=== PATIENT | male | born 1955 | race Two or more races ===

== ENCOUNTER → 2018-11-28 | Outpatient (CLI) | payer MEDICARE ==
[~2018-11-28] MED LIST: OMNIPAQUE 350 MG/ML, 150 ML BOTTLE ONE
== END | disposition home or self-care (01) ==
LOC: CFH 12:44
PROVIDERS: ATTEND Internal Medicine Cardiovascular Disease
DX: I63.511 Cerebral infarction due to unspecified occlusion or stenosis of right middle cerebral artery (principal); I74.3 Embolism and thrombosis of arteries of the lower extremities; M79.604 Pain in right leg; I70.8 Atherosclerosis of other arteries
CPT/HCPCS: 71275; 75635; 82565; Q9967

== ENCOUNTER → 2018-11-29 | Outpatient (CLI) | payer MEDICARE | END | disposition home or self-care (01) | LOC: CFH 07:10 | PROVIDERS: ATTEND Internal Medicine Cardiovascular Disease | DX: I65.23 Occlusion and stenosis of bilateral carotid arteries (principal) | CPT/HCPCS: 78452; 93017; 93880; A9502 ==

== ENCOUNTER 2019-06-29 07:35 | Emergency (ER) | payer MEDICARE ==
[~2019-06-29] VITALS: Ht 165.1 cm; Wt 75.3 kg
[2019-06-29 07:38] VITALS: BP 139/90
--- NOTE | 2019-06-29 07:47 | NUR ---
Pt ambulated to room from triage. NADN. No needs expressed at this time.
--- NOTE | 2019-06-29 08:03 | NUR ---
Pt resting on gurney connected to NIBP cuff and continous pulse ox monitor. Call light within reach. Family at bedside. NADN. No needs expressed.
[2019-06-29] MEDS ORDERED: Plavix (08:10)
[2019-06-29 08:49] LABS: RAPID INFLUENZA A Negative (Negative); RAPID INFLUENZA B Negative (Negative)
[2019-06-29 08:55] LABS: BASOPHILS # (AUTO) 0.04 x10^3/uL (0-0.1); BASOPHILS % (AUTO) 1 % (0-1); EOSINOPHILS # (AUTO) 0.25 x10^3/uL (0-0.4); EOSINOPHILS % (AUTO) 4 % (1-7); LYMPHOCYTES # (AUTO) 0.74 x10^3/uL (1-3.4); LYMPHOCYTES % (AUTO) 11 % (22-44); MD NO; MEAN CORPUSCULAR HEMOGLOBIN 31.1 pg (27.5-34.5); MEAN CORPUSCULAR HGB CONC 32.7 g/dL (33.2-36.2); MEAN CORPUSCULAR VOLUME 95.2 fL (81-97); MEAN PLATELET VOLUME 7.7 fL (7.4-10.4); MONOCYTES # (AUTO) 0.34 x10^3/uL (0.2-0.8); MONOCYTES % (AUTO) 5 % (2-9); NEUTROPHILS # (AUTO) 5.63 x10^3/uL (1.8-6.8); NEUTROPHILS % (AUTO) 80 % (42-75); PLATELET COUNT 284 x10^3/uL (130-400); RED BLOOD COUNT 5.03 x10^6/uL (4.38-5.82)
[2019-06-29 09:02] LABS: ALBUMIN 3.3 g/dL (3.4-5.0); ANION GAP 6 mmol/L (5-15); CALCIUM 9.1 mg/dL (8.5-10.1); CHLORIDE 112 mmol/L (98-107)
[2019-06-29 09:06] LABS: ALANINE AMINOTRANSFERASE 46 U/L (12-78); ALKALINE PHOSPHATASE 41 U/L (45-117); BILIRUBIN,TOTAL 0.6 mg/dL (0.2-1.0); CREATININE 0.73 mg/dL (0.7-1.3)
--- NOTE | 2019-06-29 09:32 | NUR ---
Patient and caregiver given discharge instructions and they have confirmed that they understand the instructions. Patient ambulatory with steady gait. Pt left with d/c paperwork and all personal belongings. CHRIS.
[2019-06-30] MEDS ORDERED: ASPI-496 PO (04:07)
[2019-06-30] MEDS ORDERED: TAMS-11 PO (04:07)
[2019-06-30] MEDS ORDERED: ATOR-2 PO (04:07)
[2019-06-30] MEDS ORDERED: CLOP75TA52 PO (04:07)
[2019-06-30] MEDS ORDERED: LOSA1TAB22 PO (04:07)
[2019-06-30] MEDS ORDERED: AZIT250T89 PO (04:38)
[2019-07-02] MEDS ORDERED: PANT20TA3 PO (13:03)
== END 2019-06-29 09:41 | disposition home or self-care (01) ==
LOC: ED 08:17
DX: R05 Cough (principal); R50.9 Fever, unspecified; I10 Essential (primary) hypertension; E11.9 Type 2 diabetes mellitus without complications; E78.00 Pure hypercholesterolemia, unspecified; M19.90 Unspecified osteoarthritis, unspecified site; Z87.891 Personal history of nicotine dependence
CPT/HCPCS: 36415; 71046; 80053; 85025; 87081; 87147; 87400; 87880; 99284

== ENCOUNTER → 2019-08-05 | Outpatient (CLI) | payer MEDICARE ==
[~2019-08-05] MED LIST changes: +ASPI-496 PO; +ATOR-2 PO; +AZIT250T89 PO; +CLOP75TA52 PO; +LOSA1TAB22 PO; -OMNIPAQUE 350 MG/ML, 150 ML BOTTLE ONE; +PANT20TA3 PO; +Plavix; +TAMS-11 PO
[2019-08-05 13:32] LABS: ALBUMIN 3.9 g/dL (3.4-5.0); BILIRUBIN, DIRECT 0.2 mg/dL (0.1-0.2); BILIRUBIN,INDIRECT 0.5 mg/dL (0.0-2.0); BILIRUBIN,TOTAL 0.7 mg/dL (0.2-1.0); CHOL/HDL RATIO 2.4; LDL/HDL RATIO 1.2 (0.5-3.0); TOTAL PROTEIN 6.6 g/dL (6.4-8.2)
== END | disposition home or self-care (01) ==
LOC: CFH 09:00
PROVIDERS: ATTEND Internal Medicine Cardiovascular Disease
DX: E78.2 Mixed hyperlipidemia (principal); I63.511 Cerebral infarction due to unspecified occlusion or stenosis of right middle cerebral artery; I70.208 Unspecified atherosclerosis of native arteries of extremities, other extremity
CPT/HCPCS: 36415; 80061; 80076

== ENCOUNTER 2019-09-25 17:01 | Emergency (ER) | payer MEDICARE ==
[~2019-09-25] VITALS: Ht 165.1 cm; Wt 73.4 kg
[2019-09-25] MEDS ORDERED: AMLO5TAB10 PO (17:22)
--- NOTE | 2019-09-25 17:43 | NUR ---
PER DAUGHTER, PT HAS BEEN HAVING REALLY BAD BARKLEY'S, LT SIDED NECK PAIN. YESTERDAY: 180/100 HOME BP. SAW PCP TODAY; ED TOMMY ADVISED. PT DANISH SPEAKING; DAUGHTER TRANSLATING. PT A&OX4, RESP EVEN & UNLABORED, SKIN WNL, SPEECH CLEAR. ABLE TO MOVE ALL EXTREMITIES W/OUT DIFFICULTY. NO EXTRA PAIN MED TODAY; ONLY HIS USUAL MEDS. LAST ORAL INTAKE: 1300 TODAY. CURRENTLY C/O POSTERIOR HEAD PAIN & SOME LT NECK PAIN. RATES PAIN AT 6/10.
[2019-09-25] MEDS ORDERED: LIDOCAINE (17:56)
--- NOTE | 2019-09-25 18:26 | NUR ---
AMBULATORY TO & FROM [facility] W/OUT INCIDENT; GAIT STEADY.
[2019-09-25] MEDS ORDERED: SODIUM CHLORIDE FLUSH 10ML SYR IVF ONE (18:30)
--- NOTE | 2019-09-25 18:32 | NUR ---
LABS DRAWN, STRAW HAT BRUSHER APPLIED, XR NOW AT BS.
[2019-09-25 18:39] LABS: BASOPHILS # (AUTO) 0.02 x10^3/uL (0-0.1); BASOPHILS % (AUTO) 0 % (0-1); EOSINOPHILS # (AUTO) 0.39 x10^3/uL (0-0.4); EOSINOPHILS % (AUTO) 6 % (1-7); LYMPHOCYTES # (AUTO) 1.69 x10^3/uL (1-3.4); LYMPHOCYTES % (AUTO) 24 % (22-44); MD NO; MEAN CORPUSCULAR HEMOGLOBIN 25.3 pg (27.5-34.5); MEAN CORPUSCULAR HGB CONC 31.6 g/dL (33.2-36.2); MEAN PLATELET VOLUME 7.6 fL (7.4-10.4); MONOCYTES # (AUTO) 0.57 x10^3/uL (0.2-0.8); MONOCYTES % (AUTO) 8 % (2-9); NEUTROPHILS % (AUTO) 63 % (42-75); PLATELET COUNT 396 x10^3/uL (130-400); RED BLOOD COUNT 5.86 x10^6/uL (4.38-5.82); RED CELL DISTRIBUTION WIDTH 18.3 % (9.4-14.8)
--- NOTE | 2019-09-25 18:41 | NUR ---
TO MRI PER ASAEL, ACCOMPANIED BY DAUGHTER.
[2019-09-25] MEDS ORDERED: GADOTERATE 10 MMOL/20 ML SYR ONE (18:50)
[2019-09-25 18:52] LABS: ALANINE AMINOTRANSFERASE 38 U/L (12-78); ANION GAP 5 mmol/L (5-15); CALCIUM 9.5 mg/dL (8.5-10.1); CHLORIDE 105 mmol/L (98-107); CREATININE 0.83 mg/dL (0.7-1.3)
[2019-09-25 18:54] LABS: ALKALINE PHOSPHATASE 62 U/L (45-117); BILIRUBIN,TOTAL 0.3 mg/dL (0.2-1.0); TOTAL PROTEIN 7.3 g/dL (6.4-8.2)
--- NOTE | 2019-09-25 19:23 | NUR ---
PT AMBULATORY TO & FROM [facility] W/OUT INCIDENT; GAIT STEADY.
[2019-09-25 20:16] VITALS: BP 122/79
--- NOTE | 2019-09-25 20:16 | NUR ---
DR WELCH BS TO DISCUSS POC.
[2019-09-25] MEDS ORDERED: ACETAMINOPHEN 500 MG TABLET ONE (20:27)
[2019-09-25] MEDS ORDERED: ACETAMINOPHEN 500 MG TABLET PO ONE (20:30)
== END 2019-09-25 20:44 | disposition home or self-care (01) ==
LOC: ED 20:00
DX: G44.219 Episodic tension-type headache, not intractable (principal); M54.2 Cervicalgia; I10 Essential (primary) hypertension; Z86.73 Personal history of transient ischemic attack (TIA), and cerebral infarction without residual deficits; E11.9 Type 2 diabetes mellitus without complications; E78.00 Pure hypercholesterolemia, unspecified; M19.90 Unspecified osteoarthritis, unspecified site; Z90.89 Acquired absence of other organs; Z87.891 Personal history of nicotine dependence; Z98.61 Coronary angioplasty status
CPT/HCPCS: 36415; 70553; 71045; 80053; 85025; 99285; A9575

== ENCOUNTER 2019-10-10 13:01 | Emergency (ER) | payer MEDICARE ==
[~2019-10-10] VITALS: Ht 165.1 cm; Wt 74.3 kg
[~2019-10-10 13:01] MED LIST changes: +AMLO5TAB10 PO; +LIDOCAINE
[2019-10-10 14:27] LABS: BASOPHILS # (AUTO) 0.03 x10^3/uL (0-0.1); BASOPHILS % (AUTO) 1 % (0-1); EOSINOPHILS # (AUTO) 0.31 x10^3/uL (0-0.4); EOSINOPHILS % (AUTO) 5 % (1-7); LYMPHOCYTES # (AUTO) 1.17 x10^3/uL (1-3.4); LYMPHOCYTES % (AUTO) 21 % (22-44); MD NO; MEAN CORPUSCULAR HEMOGLOBIN 25.1 pg (27.5-34.5); MEAN CORPUSCULAR HGB CONC 32.1 g/dL (33.2-36.2); MEAN CORPUSCULAR VOLUME 78.2 fL (81-97); MONOCYTES # (AUTO) 0.41 x10^3/uL (0.2-0.8); MONOCYTES % (AUTO) 7 % (2-9); NEUTROPHILS # (AUTO) 3.76 x10^3/uL (1.8-6.8); NEUTROPHILS % (AUTO) 66 % (42-75); PLATELET COUNT 369 x10^3/uL (130-400); RED BLOOD COUNT 5.62 x10^6/uL (4.38-5.82); RED CELL DISTRIBUTION WIDTH 18.9 % (9.4-14.8)
--- NOTE | 2019-10-10 14:30 | NUR ---
pt resting in [facility], awaiting lab results
[2019-10-10 14:31] LABS: ALBUMIN 3.7 g/dL (3.4-5.0); ANION GAP 6 mmol/L (5-15); CHLORIDE 109 mmol/L (98-107); CREATININE 0.78 mg/dL (0.7-1.3)
[2019-10-10 16:04] VITALS: BP 132/69
== END 2019-10-10 16:12 | disposition home or self-care (01) ==
LOC: ED 15:55
DX: R19.5 Other fecal abnormalities (principal); I10 Essential (primary) hypertension; E11.9 Type 2 diabetes mellitus without complications; E78.00 Pure hypercholesterolemia, unspecified; Z86.73 Personal history of transient ischemic attack (TIA), and cerebral infarction without residual deficits; Z90.89 Acquired absence of other organs
CPT/HCPCS: 36415; 80048; 82040; 85025; 99283; 99285

== ENCOUNTER → 2019-12-02 | Outpatient (CLI) | payer MEDICARE ==
[2019-12-02 13:26] LABS: CHLORIDE 109 mmol/L (98-107)
[2019-12-02 13:35] LABS: ALANINE AMINOTRANSFERASE 44 U/L (12-78); ALBUMIN 3.6 g/dL (3.4-5.0); ALKALINE PHOSPHATASE 59 U/L (45-117); ANION GAP 6 mmol/L (5-15); BILIRUBIN,TOTAL 0.8 mg/dL (0.2-1.0); CALCIUM 9.1 mg/dL (8.5-10.1); CHOL/HDL RATIO 2.2; CHOLESTEROL, TOTAL 132 mg/dL (140-239); CREATININE 0.78 mg/dL (0.7-1.3); HDL CHOL % 45 % (26-37); HDL CHOLESTEROL (DIRECT) 60 mg/dL (40-60); LDL CHOLESTEROL,CALCULATED 64 mg/dL (54-169); LDL/HDL RATIO 1.1 (0.5-3.0); TOTAL PROTEIN 6.5 g/dL (6.4-8.2); TRIGLYCERIDES 38 mg/dL (50-200); VLDL CHOLESTEROL 8 mg/dL (0-25)
== END | disposition home or self-care (01) ==
LOC: CFH 07:55
PROVIDERS: ATTEND Internal Medicine Cardiovascular Disease
DX: I10 Essential (primary) hypertension (principal); E78.2 Mixed hyperlipidemia; I63.511 Cerebral infarction due to unspecified occlusion or stenosis of right middle cerebral artery; I70.208 Unspecified atherosclerosis of native arteries of extremities, other extremity
CPT/HCPCS: 36415; 80053; 80061

== ENCOUNTER → 2020-03-26 | Outpatient (CLI) | payer MEDICARE ==
[~2020-03-26] MED LIST changes: -PANT20TA3 PO; +PANT20TA4 PO
== END | disposition home or self-care (01) ==
LOC: CVU 08:29
PROVIDERS: ATTEND Internal Medicine Cardiovascular Disease
DX: I65.21 Occlusion and stenosis of right carotid artery (principal); I63.511 Cerebral infarction due to unspecified occlusion or stenosis of right middle cerebral artery; R55 Syncope and collapse
CPT/HCPCS: 93880

== ENCOUNTER 2020-07-14 17:44 | Emergency (ER) | payer MEDICARE ==
[~2020-07-14] VITALS: Ht 165.1 cm; Wt 75.6 kg
[~2020-07-14 17:44] MED LIST changes: +AMLO-210 PO; -AMLO5TAB10 PO
[2020-07-14] MEDS ORDERED: MORPHINE SULFATE 4 MG/ML, 1ML ONE (18:29)
[2020-07-14] MEDS ORDERED: ONDANSETRON 2MG/ML, 2ML ONE (18:29)
[2020-07-14] MEDS ORDERED: SODIUM CHLORIDE FLUSH 10ML SYR IVF ONE (18:30)
[2020-07-14] MEDS ORDERED: MORPHINE SULFATE 4 MG/ML, 1ML IVPush PRN (18:30)
[2020-07-14] MEDS ORDERED: ONDANSETRON 2MG/ML, 2ML IVPush ONE (18:30)
[2020-07-14 19:24] LABS: MEAN CORPUSCULAR HEMOGLOBIN 29.8 pg (27.5-34.5); MEAN CORPUSCULAR HGB CONC 33.4 g/dL (33.2-36.2); MEAN PLATELET VOLUME 7.5 fL (7.4-10.4); PLATELET COUNT 269 x10^3/uL (130-400); RED BLOOD COUNT 5.33 x10^6/uL (4.38-5.82); RED CELL DISTRIBUTION WIDTH 14.9 % (9.4-14.8)
[2020-07-14 19:29] LABS: MD YES
[2020-07-14 19:32] LABS: ALANINE AMINOTRANSFERASE 46 U/L (12-78); ALBUMIN 3.6 g/dL (3.4-5.0); ANION GAP 4 mmol/L (5-15); CALCIUM 8.8 mg/dL (8.5-10.1); CHLORIDE 105 mmol/L (98-107); CREATININE 0.92 mg/dL (0.7-1.3)
[2020-07-14 19:34] LABS: ALKALINE PHOSPHATASE 61 U/L (45-117); BILIRUBIN,TOTAL 0.3 mg/dL (0.2-1.0); TOTAL PROTEIN 6.6 g/dL (6.4-8.2)
[2020-07-14 20:14] LABS: MICROSCOPIC NOT IND
[2020-07-14 20:35] LABS: BAND#(MANUAL) 0.15 x10^3/uL; BANDS%(MANUAL) 3 % (0-7); BASOS#(MANUAL) 0.05 x10^3/uL (0-0.1); BASOS% (MANUAL) 1 % (0-1); LYMPH#(MANUAL) 1.15 x10^3/uL (1-3.4); LYMPHS% (MANUAL) 23 % (22-44)
[2020-07-14 20:36] LABS: MONOS% (MANUAL) 18 % (2-9); REACTIVE LYMPHS % (MANUAL) 2 % (0-0); SEG#(MANUAL) 2.65 x10^3/uL (1.8-6.8); SEGS% (MANUAL) 53 % (42-75)
[2020-07-14 20:37] LABS: <PLATELET ESTIMATE> ADEQUATE; <PLT MORPHOLOGY> NORMAL PLT MORPH; <RBC MORPHOLOGY> NORMAL
[2020-07-14 21:30] VITALS: BP 135/74
--- NOTE | 2020-07-14 21:31 | NUR ---
DC HOME WITH INSTRUCT, RX, INFO ON OPIATE USE. PT AND SPOUSE VERBALIZE UNDERSTANDING OF INSTRUCT AND FU. TO RETURN TO ER IF WORSE OR CONERNS.
== END 2020-07-14 21:38 | disposition home or self-care (01) ==
LOC: ED 21:10
DX: S39.012A Strain of muscle, fascia and tendon of lower back, initial encounter (principal); R10.9 Unspecified abdominal pain; I10 Essential (primary) hypertension; E11.9 Type 2 diabetes mellitus without complications; E78.00 Pure hypercholesterolemia, unspecified; Z90.89 Acquired absence of other organs; Z86.73 Personal history of transient ischemic attack (TIA), and cerebral infarction without residual deficits; Z87.891 Personal history of nicotine dependence; X58.XXXA Exposure to other specified factors, initial encounter; Y93.89 Activity, other specified; Y92.89 Other specified places as the place of occurrence of the external cause; Y99.8 Other external cause status
CPT/HCPCS: 36415; 74176; 80053; 81003; 83690; 85025; 96374; 96375; 99284; J2270; J2405

== ENCOUNTER 2020-08-15 05:38 | Emergency (ER) | payer MEDICARE ==
[~2020-08-15] VITALS: Ht 165.1 cm; Wt 70.1 kg
[2020-08-15 06:27] LABS: BASOPHILS % (AUTO) 1 % (0-1); EOSINOPHILS % (AUTO) 4 % (1-7); LYMPHOCYTES % (AUTO) 17 % (22-44); MEAN CORPUSCULAR HEMOGLOBIN 29.8 pg (27.5-34.5); MEAN CORPUSCULAR HGB CONC 34.3 g/dL (33.2-36.2); MEAN PLATELET VOLUME 7.1 fL (7.4-10.4); MONOCYTES % (AUTO) 10 % (2-9); NEUTROPHILS % (AUTO) 69 % (42-75); PLATELET COUNT 412 x10^3/uL (130-400); RED BLOOD COUNT 4.88 x10^6/uL (4.38-5.82); RED CELL DISTRIBUTION WIDTH 15.6 % (9.4-14.8)
[2020-08-15] MEDS ORDERED: SODIUM CHLORIDE FLUSH 10ML SYR IVF ONE (06:30)
[2020-08-15] MEDS ORDERED: SODIUM CHLORIDE 0.9% 1,000ML IVBOLUS ONE (06:30)
[2020-08-15 06:34] LABS: MD NO
[2020-08-15 06:36] LABS: ALANINE AMINOTRANSFERASE 54 U/L (12-78); ALBUMIN 2.8 g/dL (3.4-5.0); ANION GAP 7 mmol/L (5-15); CALCIUM 9.4 mg/dL (8.5-10.1); CHLORIDE 106 mmol/L (98-107); CREATININE 0.93 mg/dL (0.7-1.3)
[2020-08-15 06:39] LABS: ALKALINE PHOSPHATASE 99 U/L (45-117); BILIRUBIN,TOTAL 0.7 mg/dL (0.2-1.0); TOTAL PROTEIN 7.2 g/dL (6.4-8.2)
--- NOTE | 2020-08-15 06:56 | NUR ---
Report from HENRY Jiang. Pt resting in bed, CHRIS. Denies pain. Daughter at bedside, call light in reach.
[2020-08-15] MEDS ORDERED: POTASSIUM CHLORIDE 20 MEQ TAB.ER.PRT ONE (07:00)
[2020-08-15] MEDS ORDERED: POTASSIUM CHLORIDE 20 MEQ PACKET PO ONE (07:00)
[2020-08-15] MEDS ORDERED: POTASSIUM CHLORIDE 20 MEQ PACKET ONE (07:03)
--- NOTE | 2020-08-15 07:15 | NUR ---
Pt ambulatory to bathroom and back with steady gait. Pt denies recent abx use even with COVID diagnosis.
[2020-08-15 07:43] VITALS: BP 136/87
== END 2020-08-15 07:50 | disposition home or self-care (01) ==
LOC: ED 07:00
DX: J18.9 Pneumonia, unspecified organism (principal); R19.7 Diarrhea, unspecified; I10 Essential (primary) hypertension; E11.9 Type 2 diabetes mellitus without complications; E78.00 Pure hypercholesterolemia, unspecified; Z86.73 Personal history of transient ischemic attack (TIA), and cerebral infarction without residual deficits; Z90.89 Acquired absence of other organs; Z98.61 Coronary angioplasty status; Z87.891 Personal history of nicotine dependence
CPT/HCPCS: 36415; 74022; 80053; 85025; 96360; 99284; J7030